=== PATIENT | female | born 1955 | race Caucasian/White ===

== ENCOUNTER 2017-02-26 16:04 | Emergency (ER) | payer OTHER ==
[~2017-02-26] VITALS: Ht 160 cm; Wt 78.1 kg
[2017-02-26 18:28] LABS: BASOPHIL % 0.5 % (0-2); PLATELET COUNT 221 x10^3mcL (130-400); RED CELL DISTRIBUTION WIDTH 13.4 % (11.5-14.5)
[2017-02-26 18:36] LABS: CALCIUM 8.9 mg/dL (8.5-10.1); CARBON DIOXIDE 29.1 mmol/L (21-32); CHLORIDE SERUM 96 mmol/L (98-107); CREATININE SERUM 0.8 mg/dL (0.6-1.0); GFR1 > 60 mL/min; GLUCOSE SERUM 352 mg/dL (74-106); POTASSIUM SERUM 3.9 mmol/L (3.5-5.1); SODIUM SERUM 134 mmol/L (136-145)
[2017-02-26 18:40] LABS: ALBUMIN 3.6 g/dL (3.4-5.0); ALKALINE PHOSPHATASE 103 U/L (46-116); ALT/SGPT 29 U/L (14-59); AST/SGOT 24 U/L (15-37); BILIRUBIN TOTAL 0.81 mg/dL (0.20-1.00); TOTAL PROTEIN, SERUM 8.4 g/dL (6.4-8.2)
[2017-02-26 20:11] VITALS: BP 135/81
== END 2017-02-26 20:11 | disposition home or self-care (01) ==
LOC: ED 16:04
PROVIDERS: Emergency Medicine
DX: L03.031 Cellulitis of right toe (principal); E11.9 Type 2 diabetes mellitus without complications
CPT/HCPCS: 82962; J7030

== ENCOUNTER 2017-04-08 16:03 | Inpatient (IN) | payer OTHER ==
[~2017-04-08] VITALS: Ht 160 cm; Wt 77.7 kg
[2017-04-08 17:52] LABS: microscopic required? YES; urine erythrocyte 1+ (NEGATIVE)
[2017-04-08 17:56] LABS: BASOPHIL % 0.6 % (0-2); PLATELET COUNT 192 x10^3mcL (130-400); RED CELL DISTRIBUTION WIDTH 13.2 % (11.5-14.5)
[2017-04-08 18:06] LABS: CALCIUM 8.9 mg/dL (8.5-10.1); CARBON DIOXIDE 27.8 mmol/L (21-32); CHLORIDE SERUM 97 mmol/L (98-107); CREATININE SERUM 0.8 mg/dL (0.6-1.0); GFR1 > 60 mL/min; GLUCOSE SERUM 380 mg/dL (74-106); POTASSIUM SERUM 3.3 mmol/L (3.5-5.1); SODIUM SERUM 134 mmol/L (136-145)
[2017-04-08 18:10] LABS: ALBUMIN 3.4 g/dL (3.4-5.0); ALKALINE PHOSPHATASE 133 U/L (46-116); ALT/SGPT 18 U/L (14-59); AST/SGOT 15 U/L (15-37); BILIRUBIN TOTAL 0.9 mg/dL (0.20-1.00); TOTAL PROTEIN, SERUM 8.2 g/dL (6.4-8.2)
[2017-04-08 19:56] LABS: CHOLESTEROL/HDL RATIO 4.7
[2017-04-08 22:05] VITALS: BP 144/83
[2017-04-09 06:45] VITALS: BP 100/62
[2017-04-09 07:22] LABS: BASOPHIL % 0.4 % (0-2); PLATELET COUNT 179 x10^3mcL (130-400); RED CELL DISTRIBUTION WIDTH 13.3 % (11.5-14.5)
[2017-04-09 07:24] LABS: CALCIUM 7.9 mg/dL (8.5-10.1); CHLORIDE SERUM 106 mmol/L (98-107); CREATININE SERUM 0.7 mg/dL (0.6-1.0); GFR1 > 60 mL/min; GLUCOSE SERUM 247 mg/dL (74-106); MAGNESIUM 1.8 mg/dL (1.8-2.4); PHOSPHOROUS 2.7 mg/dL (2.5-4.9); POTASSIUM SERUM 3.4 mmol/L (3.5-5.1); SODIUM SERUM 140 mmol/L (136-145)
[2017-04-09 09:56] VITALS: BP 110/69
[2017-04-09 13:02] VITALS: BP 113/73
[2017-04-09 17:06] VITALS: BP 102/61
[2017-04-09 20:24] VITALS: Ht 160 cm; Wt 77.7 kg
[2017-04-09 21:12] VITALS: BP 121/70
[2017-04-10 05:57] VITALS: BP 134/77
[2017-04-10 06:22] LABS: BASOPHIL % 0.3 % (0-2); PLATELET COUNT 198 x10^3mcL (130-400); RED CELL DISTRIBUTION WIDTH 13.3 % (11.5-14.5)
[2017-04-10 06:41] LABS: CALCIUM 8.3 mg/dL (8.5-10.1); CARBON DIOXIDE 29.8 mmol/L (21-32); CHLORIDE SERUM 102 mmol/L (98-107); CREATININE SERUM 0.8 mg/dL (0.6-1.0); GFR1 > 60 mL/min; GLUCOSE SERUM 300 mg/dL (74-106); POTASSIUM SERUM 3.7 mmol/L (3.5-5.1); SODIUM SERUM 137 mmol/L (136-145)
[2017-04-10 09:45] VITALS: BP 119/71
[2017-04-10 17:47] VITALS: BP 136/77
[2017-04-10 21:54] VITALS: BP 156/84
[2017-04-11 06:43] VITALS: BP 123/75
[2017-04-11 09:15] VITALS: BP 110/71
[2017-04-11 09:24] LABS: CALCIUM 8.3 mg/dL (8.5-10.1); CARBON DIOXIDE 28.8 mmol/L (21-32); CHLORIDE SERUM 98 mmol/L (98-107); CREATININE SERUM 0.7 mg/dL (0.6-1.0); GFR1 > 60 mL/min; GLUCOSE SERUM 164 mg/dL (74-106); SODIUM SERUM 140 mmol/L (136-145)
[2017-04-11 09:28] LABS: BASOPHIL % 0.3 % (0-2); PLATELET COUNT 211 x10^3mcL (130-400); RED CELL DISTRIBUTION WIDTH 13.5 % (11.5-14.5)
[2017-04-11 09:35] LABS: POTASSIUM SERUM 2.7 mmol/L (3.5-5.1)
[2017-04-11] MEDS ORDERED: LEVEMIR100 U/M1 SQ (13:09)
[2017-04-11] MEDS ORDERED: AUG500 PO (13:14)
[2017-04-11 13:16] VITALS: BP 110/71
[2017-04-11 16:36] LABS: CALCIUM 8.4 mg/dL (8.5-10.1); CARBON DIOXIDE 27.7 mmol/L (21-32); CHLORIDE SERUM 103 mmol/L (98-107); CREATININE SERUM 0.7 mg/dL (0.6-1.0); GFR1 > 60 mL/min; GLUCOSE SERUM 259 mg/dL (74-106); POTASSIUM SERUM 3.2 mmol/L (3.5-5.1); SODIUM SERUM 141 mmol/L (136-145)
[2017-04-11 17:04] VITALS: BP 129/75
[2017-04-11] MEDS ORDERED: LAC PO (17:05)
[2017-04-11] MEDS ORDERED: IBUPROFEN400 MG PO (17:34)
== END 2017-04-11 18:45 | disposition home or self-care (01) | DRG 746 ==
LOC: ED 16:03 → DU 18:49 → MU 18:49 → DU 21:48 → MU 04-10 12:53
PROVIDERS: Emergency Medicine; Family Medicine; Surgery; ADMIT Student in an Organized Health Care Education/Training Program
PROC: 0U9M0ZZ Drainage of Vulva, Open Approach (ICD-10-PCS; principal; 2017-04-10 08:00)
DX: N76.4 Abscess of vulva (principal); N17.0 Acute kidney failure with tubular necrosis; N39.0 Urinary tract infection, site not specified; D68.69 Other thrombophilia; K61.1 Rectal abscess; B96.1 Klebsiella pneumoniae [K. pneumoniae] as the cause of diseases classified elsewhere; E11.59 Type 2 diabetes mellitus with other circulatory complications; E11.65 Type 2 diabetes mellitus with hyperglycemia; E87.6 Hypokalemia; E78.00 Pure hypercholesterolemia, unspecified; Z68.30 Body mass index [BMI] 30.0-30.9, adult; Z91.19 Patient's noncompliance with other medical treatment and regimen
CPT/HCPCS: 82962; 83880; J1815; J2001; J2250; J2270; J2543; J2704; J3010; J3480; J3490; J7030; J7040; Q0092; Q9967

== ENCOUNTER 2017-04-15 22:33 | Emergency (ER) | payer OTHER ==
[~2017-04-15 22:33] MED LIST: AUG500 PO; IBUPROFEN400 MG PO; LAC PO; LEVEMIR100 U/M1 SQ
[2017-04-15 23:28] LABS: BASOPHIL % 0.5 % (0-2); PLATELET COUNT 247 x10^3mcL (130-400); RED CELL DISTRIBUTION WIDTH 13.7 % (11.5-14.5)
[2017-04-15 23:42] LABS: ALKALINE PHOSPHATASE 110 U/L (46-116); ALT/SGPT 19 U/L (14-59); AST/SGOT 20 U/L (15-37); BILIRUBIN TOTAL 0.6 mg/dL (0.20-1.00); CALCIUM 8.7 mg/dL (8.5-10.1); CARBON DIOXIDE 29.6 mmol/L (21-32); CHLORIDE SERUM 100 mmol/L (98-107); CHOLESTEROL 189 mg/dL (<200); CREATININE SERUM 0.8 mg/dL (0.6-1.0); GFR1 > 60 mL/min; GLUCOSE SERUM 336 mg/dL (74-106); HDL CHOLESTEROL 40 mg/dL (40-60); MAGNESIUM 1.8 mg/dL (1.8-2.4); SODIUM SERUM 137 mmol/L (136-145); TOTAL PROTEIN, SERUM 7.7 g/dL (6.4-8.2)
[2017-04-16 03:33] VITALS: BP 123/67
== END 2017-04-16 03:33 | disposition home or self-care (01) ==
LOC: ED 22:33
PROVIDERS: Emergency Medicine
DX: E87.6 Hypokalemia (principal); E11.65 Type 2 diabetes mellitus with hyperglycemia
CPT/HCPCS: 83880; J2060; J2405; J7030; J8597

== ENCOUNTER 2019-01-10 13:59 | Emergency (ER) | payer OTHER ==
[~2019-01-10] VITALS: Ht 160 cm; Wt 72.6 kg
[2019-01-10 14:09] VITALS: Ht 160 cm; Wt 72.6 kg
[2019-01-10 15:01] VITALS: BP 121/74
== END 2019-01-10 15:05 | disposition home or self-care (01) ==
LOC: ED 13:59
DX: L03.116 Cellulitis of left lower limb (principal); L84 Corns and callosities; E11.9 Type 2 diabetes mellitus without complications
CPT/HCPCS: J0696

== ENCOUNTER 2019-01-12 22:28 | Emergency (ER) | payer OTHER ==
[~2019-01-12] VITALS: Ht 160 cm; Wt 76.3 kg
[2019-01-12 22:53] VITALS: Ht 160 cm; Wt 76.3 kg
[2019-01-13 00:49] VITALS: BP 124/76
== END 2019-01-13 00:49 | disposition home or self-care (01) ==
LOC: ED 22:28
DX: L03.116 Cellulitis of left lower limb (principal); E11.9 Type 2 diabetes mellitus without complications
CPT/HCPCS: J0696